=== PATIENT | female | born 1990 | race Two or more races ===

== ENCOUNTER 2018-04-16 21:14 | Outpatient (CLI) | payer OTHER ==
[2018-04-16] MEDS ORDERED: PRENATAL VITAM1 EAC2 PO (21:17)
== END 2018-04-17 07:45 | disposition home or self-care (01) ==
LOC: OBS/DEL 21:14
DX: O46.8X3 Other antepartum hemorrhage, third trimester (principal); Z34.03 Encounter for supervision of normal first pregnancy, third trimester

== ENCOUNTER 2018-04-19 09:15 | Inpatient (IN) | payer OTHER ==
[~2018-04-19] VITALS: Ht 132.1 cm; Wt 5.0 kg
[~2018-04-19 09:15] MED LIST: PRENATAL VITAM1 EAC2 PO
== END 2018-05-14 13:21 | disposition home or self-care (01) | DRG 788 ==
LOC: EDUNIT# 09:15 → LDR 09:15 → OB/GYN 05-11 07:18 → O/R 05-11 21:09 → OB/GYN 05-11 22:57
PROVIDERS: Obstetrics & Gynecology Maternal & Fetal Medicine; ADMIT Obstetrics & Gynecology
PROC: 3E033VJ Introduction of Other Hormone into Peripheral Vein, Percutaneous Approach (ICD-10-PCS; 2018-05-11)
PROC: 4A1HXCZ Monitoring of Products of Conception, Cardiac Rate, External Approach (ICD-10-PCS; 2018-05-11)
PROC: 10D00Z1 Extraction of Products of Conception, Low, Open Approach (ICD-10-PCS; principal; 2018-05-11 16:00)
DX: O61.0 Failed medical induction of labor (principal); Z3A.40 40 weeks gestation of pregnancy; Z37.0 Single live birth

== ENCOUNTER 2018-05-03 11:28 | Outpatient (CLI) | payer OTHER | END 2018-05-03 12:30 | disposition home or self-care (01) | LOC: NST 11:28 | DX: Z34.83 Encounter for supervision of other normal pregnancy, third trimester (principal) ==

== ENCOUNTER 2022-05-06 07:33 | Day surgery (SDC) | payer OTHER | END 2022-05-06 15:35 | disposition home or self-care (01) | LOC: CIR.AMB 07:33 | PROVIDERS: ATTEND Obstetrics & Gynecology | DX: Z30.2 Encounter for sterilization (principal); Z86.16 Personal history of COVID-19; Z20.822 Contact with and (suspected) exposure to COVID-19 ==